=== PATIENT | female | born 1955 | race Caucasian/White ===

== ENCOUNTER 2021-03-14 21:20 | Inpatient (IN) | payer OTHER ==
[~2021-03-14] VITALS: Ht 152.4 cm; Wt 61.2 kg
[2021-03-14 21:21] VITALS: BP 129/65
[2021-03-14 22:05] LABS: ABSOLUTE NEUTROPHILS 6.9 thou/uL (1.4-8.2); BASOPHILS 0.8 % (0.0-2.0); EOSINOPHILS 1.4 % (0.0-3.0); HEMATOCRIT 48.5 % (37.0-47.0); HEMOGLOBIN 16.1 gm/dL (12.0-15.0); LYMPHOCYTES 24.7 % (24.0-44.0); MCHC 33.1 g/dL (28.0-37.0); MCV 99.6 fL (80.0-100.0); PLATELET COUNT 330 thou/uL (150-400); POLYS 65.1 % (36.0-66.0); RBC 4.87 mil/uL (4.20-5.00); RDW 14.1 % (10.5-14.5); WBC 10.5 thou/uL (4.0-11.0)
[2021-03-14 22:18] LABS: CALCIUM 8.5 mg/dL (8.5-10.1); CREATININE 1.1 mg/dL (0.6-1.0); POTASSIUM 4.1 mmol/L (3.5-5.1)
[2021-03-14 22:24] LABS: TOTAL BILIRUBIN 0.3 mg/dL (0.2-1.0); TOTAL PROTEIN 6.2 g/dL (6.4-8.2)
--- NOTE | 2021-03-15 09:40 | EKG ---
[place] [address] [facility] [place] [address] ELECTROCARDIOGRAM REPORT Name: DIANA GARZA Room #: 170-10 ADM IN M.R.#: [id number] Admission: 03/14/21 Attend Phys: Artur Paniagua MD Discharge: Date of : 57 Report #: [id number] [facility] ED Test Date: 2021-03-14 Test Time: 21:56:59 Pat Name: DIANA GARZA Department: Room: 170 Gender: F Ham Clerk: MATTEO : 1955 Requested By: Nelia Martino Order Number: [id number] MD: Royce Tapia Measurements Intervals [place] Rate: 71 P: 86 CA: 188 QRS: 140 QRSD: 94 T: 56 QT: 407 QTc: 443 Interpretive Statements Sinus rhythm Right axis deviation Low voltage, extremity leads Abnormal R-wave progression, late transition No previous ECG available for comparison Electronically Signed On 03-15-2021 9:40:19 CDT by Royce Tapia [email or web address] <ELECTRONICALLY SIGNED> By: Royce Tapia MD, [facility] 03/15/21 0940 D: [id number]/2155 55 Royce Tapia MD, FACC /EPI
[2021-03-15] MEDS ORDERED: NORVASC5 MG PO (11:29)
[2021-03-15] MEDS ORDERED: GABAPENTIN600 M1 PO (11:30)
[2021-03-15] MEDS ORDERED: TRAMADOL 50 MG50 MG PO (11:30)
[2021-03-15] MEDS ORDERED: CLONAZEPAM 0.50.5 M1 PO (11:30)
[2021-03-15] MEDS ORDERED: LIPITOR 20 MG T20 M1 PO (11:31)
[2021-03-15] MEDS ORDERED: BUSPAR30 MG PO (11:31)
[2021-03-15] MEDS ORDERED: INDERAL LA120 M1 PO (11:31)
[2021-03-15] MEDS ORDERED: COLACE100 MG PO (11:31)
[2021-03-15] MEDS ORDERED: REMERON30 M1 PO (11:31)
[2021-03-15] MEDS ORDERED: CELEBREX50 MG PO (11:32)
[2021-03-15] MEDS ORDERED: ZYPREXA20 MG PO (11:32)
[2021-03-15] MEDS ORDERED: PLAVIX 75 MG TA75 MG PO (11:38)
[2021-03-15] MEDS ORDERED: TOPROL XL100 MG PO (11:38)
[2021-03-15] MEDS ORDERED: MYSOLINE50 MG PO (11:39)
[2021-03-15] MEDS ORDERED: TOVIAZ8 MG PO (11:40)
[2021-03-15] MEDS ORDERED: SPIRONOLACTONE25 MG PO (11:40)
[2021-03-15 16:24] VITALS: BP 117/68
[2021-03-15 16:50] VITALS: BP 124/67
[2021-03-15 17:26] VITALS: BP 125/75
[2021-03-15 19:29] VITALS: BP 134/93
[2021-03-16 05:28] VITALS: BP 135/76
[2021-03-16 05:45] LABS: HEMATOCRIT 47.8 % (37.0-47.0); HEMOGLOBIN 15.8 gm/dL (12.0-15.0); MCH 33.3 pg (26.0-34.0); MCV 100.6 fL (80.0-100.0); RBC 4.75 mil/uL (4.20-5.00); RDW 14.1 % (10.5-14.5); WBC 11.6 thou/uL (4.0-11.0)
[2021-03-16 05:54] LABS: CALCIUM 9.2 mg/dL (8.5-10.1); MAGNESIUM 1.6 mg/dL (1.8-2.4); POTASSIUM 4.7 mmol/L (3.5-5.1)
[2021-03-16 07:25] VITALS: BP 132/80
[2021-03-16 15:35] VITALS: BP 134/77
[2021-03-16 19:43] VITALS: BP 126/78
[2021-03-17 05:14] LABS: HEMATOCRIT 46.5 % (37.0-47.0); HEMOGLOBIN 15.6 gm/dL (12.0-15.0); MCH 33.4 pg (26.0-34.0); MCHC 33.6 g/dL (28.0-37.0); MCV 99.5 fL (80.0-100.0); RBC 4.68 mil/uL (4.20-5.00); RDW 14.3 % (10.5-14.5); WBC 12.5 thou/uL (4.0-11.0)
[2021-03-17 05:40] LABS: CALCIUM 9.2 mg/dL (8.5-10.1); CREATININE 0.9 mg/dL (0.6-1.0); MAGNESIUM 1.8 mg/dL (1.8-2.4); POTASSIUM 4.8 mmol/L (3.5-5.1)
[2021-03-17 07:44] VITALS: BP 129/63
[2021-03-17 08:05] VITALS: BP 129/63
[2021-03-17 15:30] VITALS: BP 98/54
[2021-03-17 16:05] VITALS: BP 98/54
[2021-03-17 20:03] VITALS: BP 126/73
[2021-03-18 05:03] LABS: HEMATOCRIT 43.1 % (37.0-47.0); HEMOGLOBIN 14.2 gm/dL (12.0-15.0); MCH 32.7 pg (26.0-34.0); MCHC 32.9 g/dL (28.0-37.0); MCV 99.5 fL (80.0-100.0); RBC 4.34 mil/uL (4.20-5.00); RDW 14.2 % (10.5-14.5); WBC 12.9 thou/uL (4.0-11.0)
[2021-03-18 05:18] LABS: CALCIUM 8.9 mg/dL (8.5-10.1); POTASSIUM 4.9 mmol/L (3.5-5.1)
[2021-03-18 08:38] VITALS: BP 126/74
[2021-03-18] MEDS ORDERED: IPRAT-ALBUT 0.5-3 ML INH (12:36)
[2021-03-18] MEDS ORDERED: LEVOFLOXACIN500 MG PO (12:36)
[2021-03-18] MEDS ORDERED: METOPROLOL SUCC50 MG PO (12:36)
[2021-03-18] MEDS ORDERED: PREDNISONE 10 M10 M1 PO (12:37)
[2021-03-18] MEDS ORDERED: MUCINEX600 MG PO (12:37)
[2021-03-18 14:28] VITALS: BP 116/76
== END 2021-03-18 17:52 | DRG 189 ==
LOC: ER 21:20 → EROBS 23:12 → 4W 03-15 18:26
PROVIDERS: Hospitalist; Nurse Practitioner Family; ADMIT Internal Medicine; ATTEND Internal Medicine
DX: J96.21 Acute and chronic respiratory failure with hypoxia (principal); E44.0 Moderate protein-calorie malnutrition; I10 Essential (primary) hypertension; E78.5 Hyperlipidemia, unspecified; F17.210 Nicotine dependence, cigarettes, uncomplicated; E11.9 Type 2 diabetes mellitus without complications; J43.9 Emphysema, unspecified; F41.9 Anxiety disorder, unspecified; I71.2 Thoracic aortic aneurysm, without rupture; F32.9 Major depressive disorder, single episode, unspecified; R26.89 Other abnormalities of gait and mobility; I25.10 Atherosclerotic heart disease of native coronary artery without angina pectoris; I95.9 Hypotension, unspecified; Z20.822 Contact with and (suspected) exposure to COVID-19; Z95.5 Presence of coronary angioplasty implant and graft; Z88.6 Allergy status to analgesic agent; Z88.8 Allergy status to other drugs, medicaments and biological substances; Z68.26 Body mass index [BMI] 26.0-26.9, adult; Z71.6 Tobacco abuse counseling
CPT/HCPCS: 10045

== ENCOUNTER 2021-03-18 12:26 | Inpatient (IN) | payer OTHER ==
[~2021-03-18] VITALS: Ht 157.5 cm; Wt 61.2 kg
[~2021-03-18 12:26] MED LIST: BUSPAR30 MG PO; CELEBREX50 MG PO; CLONAZEPAM 0.50.5 M1 PO; COLACE100 MG PO; GABAPENTIN600 M1 PO; INDERAL LA120 M1 PO; LIPITOR 20 MG T20 M1 PO; MYSOLINE50 MG PO; NORVASC5 MG PO; PLAVIX 75 MG TA75 MG PO; REMERON30 M1 PO; SPIRONOLACTONE25 MG PO; TOPROL XL100 MG PO; TOVIAZ8 MG PO; TRAMADOL 50 MG50 MG PO; ZYPREXA20 MG PO
[2021-03-18] MEDS ORDERED: IPRAT-ALBUT 0.5-3 ML INH (12:36)
[2021-03-18] MEDS ORDERED: LEVOFLOXACIN500 MG PO (12:36)
[2021-03-18] MEDS ORDERED: METOPROLOL SUCC50 MG PO (12:36)
[2021-03-18] MEDS ORDERED: MUCINEX600 MG PO (12:37)
[2021-03-18] MEDS ORDERED: PREDNISONE 10 M10 M1 PO (12:37)
[2021-03-18 16:43] VITALS: BP 118/69
--- NOTE | 2021-03-18 17:54 | NUR ---
ASSUMED CARE OF PT AT 1530 THIS AFTERNOON. PT IS IN REHAB TO RECOVER FROM ASPERATION AND COPD. PT IS A/OX4, SKIN IS WARM AND DRY AND APPROPRIATE TO RACE. LUNGS ARE WHEZING IN UPPER AND DIMINISHED IN THE LOWER TURNER. DISTAL PULSES PRESENT AND 2+. PT IS ON O2/NC@4L/HR. O2 SAT HAS BEEN IN THE 80S AND LOW 90S. ASSESSMENT OTHERWISE UNREMARKABLE. CALL LIGHT AND OTHER NEEDS ARE PLACED WITHIN REACH.
[2021-03-18 20:00] VITALS: BP 144/78
--- NOTE | 2021-03-19 02:55 | NUR ---
assumed care approx 1900 evening 03/18. pt alert and oriented x4, appropriate and cooperative. 02 at 8L per n/c. resp tx as ordered. pt took hs meds with water tolerating well. pt appears to be sleeping soundly. bed alarm on and call light in reach. will continue to monitor.
[2021-03-19 04:58] LABS: HEMATOCRIT 45.6 % (37.0-47.0); HEMOGLOBIN 15.5 gm/dL (12.0-15.0); MCH 33.8 pg (26.0-34.0); MCV 99.4 fL (80.0-100.0); RBC 4.59 mil/uL (4.20-5.00); RDW 14.3 % (10.5-14.5); WBC 13.4 thou/uL (4.0-11.0)
[2021-03-19 05:08] LABS: CALCIUM 8.9 mg/dL (8.5-10.1); CREATININE 0.9 mg/dL (0.6-1.0); MAGNESIUM 1.9 mg/dL (1.8-2.4); POTASSIUM 4.2 mmol/L (3.5-5.1)
[2021-03-19 05:35] LABS: FOLIC ACID 5.1 ng/mL (8.6-58.9)
[2021-03-19 08:00] VITALS: BP 111/59
--- NOTE | 2021-03-19 09:36 | NUR ---
ASSUMED CARE AT 0700. PATIENT IS ALERT AND ORIENTED X4. PATIENT GONZALES'S, COMMUNITY HEALTH REPRESENTATIVE ARE EQUAL. LUNGS ARE DEMINISHED. 02 AT 7L PER N/C. UP TO THE BSC WITH SBA. PATIENT HAS S.L. IN HER RIGHT FORARM. FALL AND SAFETY PROTOCOLS IN PLACE. DENIES PAIN. CONTINUES TO PROGRESS SLOWLY TOWARDS D/C GOALS. WILL CONTINUE TO MONITER.
[2021-03-19 19:50] VITALS: BP 141/96
--- NOTE | 2021-03-20 01:33 | NUR ---
assumed care approx 1899 evening 03/19. pt alert and oriented x4, pleasant and cooperative. 02 at 8l per n/c. resp tx as ordered. pt up to bathroom to void with 1 assist with walker. pt took hs meds with water tolerating well. pt appears to be sleeping soundly. bed alarm on and call light in reach. will continue to monitor.
[2021-03-20 03:05] LABS: GLYCOHEMOGLOBIN (HGB A1C) 5.7 % (4.8-5.6)
[2021-03-20 07:15] VITALS: BP 124/76
--- NOTE | 2021-03-20 12:59 | NUR ---
ASSUMED CARE AT 0700. SLEPT FAIR. ALERT AND ORIENTATED X 3. HAS CHRONIC BACK PAIN BUT DECLINES ANY PAIN MEDS FOR NOW. LUNGS DIMINISHED, DENIES BEING IN DISTRESS, ON 8L 02. PT ENC TO WORK ON IS AND MANAGED TO GO UP TO 250ML. 02 TITRATED TO 4L FOR FEAR OF CO2 RETENTION AND SATS AT 90%. PT IS COMFORTABLE ESPECIALLY AT REST AND ABLE TO SPEAK IN FULL SENTENCES. PT BECAMES TEARY WHEN SPEAKING ABOUT HER SONS AND HAVING FAMILY DRAMA ISSUES AT HOME. CLONAZEPAM GIVEN. DR PATTON CONSULTED FOR INCREASER ANXIETY AND STRESS. APPETITE GOOD, ABD SOFT AND ACTIVE, LAST BM ON 03/16, LACTULOSE 40ML GIVEN X 1, PASSING FLATUS. UP WITH SBA WITH WALKER TO BATHROOM, DIURESING ADEQ. WALKED WITH PHY THERAPY TODAY.
[2021-03-20 19:05] VITALS: BP 132/83
--- NOTE | 2021-03-21 00:20 | NUR ---
PT ASSESSMENT COMPLETED AND VSS. MEDS GIVEN ORDERED AND WELL TOLERATED. PT CONSTIPATED. MEDICATION AND PRUNE JUICE GIVEN FOR CONSTIPATION. ABD DISTENTED. PT UP ON BSC WITH +FLATUS AT THIS TIME. 0 BM. SAT WNL ON 4L NC. PT TALKED A LOT ABOUT HOW HARD LIFE HAS BEEN FOR HER. PROVIDED MUCH EMOTIONAL SUPPORT. SLEEPING AT THIS TIME. DENIES NEEDS. WILL CONTINUE TO MONITOR FREQUENTLY.
[2021-03-21 07:15] VITALS: BP 116/68
--- NOTE | 2021-03-21 10:56 | NUR ---
chart review. cm called spoke with ryan via phone call. she was working with ot. noted she lives in [facility] with . independent prior to hospital. 14 steps up to room. no dme. no hh or rehab in the past. will cont following as needed for dc needs.
--- NOTE | 2021-03-21 11:20 | NUR ---
ASSUMED CARE AT 0700. SLEPT FAIRLY WELL. ALERT AND ORIENTATED X 3. NO REPORTED PAIN TODAY. PT COMPLAINED OF SOMETIMES HAVING DIFFICULTY WITH SWALLOWING AND DR CARRILLO NOTIFIED. HAD A SWALLOW STUDY TODAY, SHOWED SILENT ASPIRATION AND DIET CHANGED TO MECH CHOP WITH NECTAR THICK. TOLERATED MED WITH APPLE SAUCE. PER STAFF PT HAD A GOOD BM EARLY THIS MORNING, AFTER GIVEN BOWEL REGIMEN WITH PRUNE JUICE. PT FELT MUCH BETTER, ABDOMEN IS SOFTER. UP WITH SBA TO BATHROOM. PARTICIPATING WITH THERAPY AND PROGRESSING. ON 4L 02 WITH SAT AT 94%, CONT TO ENC INCENTIVE SPIROMETRY.
--- NOTE | 2021-03-21 12:50 | NUR ---
Nutrition: RD received rehab admission orders consult. Admit with COPD exacerbation and gait instability. PMH: COPD, DM, HTN, HLD, stents. ST evaling pt during visit stating pt is silent aspirator and will need mech soft, nectar thick liquids diet. Also does not wear upper dentures when eating. C/O food sticking in esophagus and hx of dilations. Would rec GI consult. Stable wts. Intake of meals so far charted as 50-90% with good appetite reported. Folate deficiency-supplementing. Vitamin D pending. A1C 5.7 with no current accuchecks or Dm meds, however pt currently on steroids. Pt would like to try ensure pudding/magic cups. Would recommend order blood glucose monitoring to determine if further diet restrictions needed as well as GI consult. Low nutrition risk.
[2021-03-21 19:36] VITALS: BP 114/69
--- NOTE | 2021-03-21 23:42 | NUR ---
PT ASSESSMENT COMPLETED AND VSS. MEDS GIVEN ORDERED AND WELL TOLERATED. FALL PRECAUTIONS IN PLACE. PT VERY ANXIOUS AND TALKING ABOUT HOW HERE SONS WERE CAUSING PROBLEMS AGAIN. PROVIDED MUCH EMOTIONAL SUPPORT. ANXIETY MEDICATION WORKING WELL. STOOL SOFTNER AND SENNA GIVEN AT HS. 0 BM SO FAR THIS EVENING. PT SAT WNL THIS EVENING ON 4L NC. PT UP TO THE BSC WITH ASST. STEADY. VOIDING LARGE AMOUNT OF YELLOW URINE. PT TOLERATING NECTOR THICK LIQUIDS. SLEEPING WELL. WILL CONTNIUE TO MONITOR FREQUETNLY. PT REFUSED SCDS.
--- NOTE | 2021-03-22 05:38 | NUR ---
PT'S SON NGA CALLED EARLY THIS MORNING STATING THAT HE NEEDED TO TALK TO HIS MOM AND THAT IT WAS AN EMERGENCY. THE SON SOUNDED INTOXICATED. TOLD THE SON THAT THE PATIENT WAS SLEEPING AND HE SAID NOT TO WAKE HER. HE WOULD NOT TELL STAFF WHAT THE EMERGENCY WAS. ABOUT 2 HOURS LATER AT AROUND 5 AM THE SON NGA CALLED AGAIN. HE SAID THAT IT WAS AN EMERGENCY. INFORMED THE PATIENT THAT HER SON NGA NEEDED HER TO CALL HIM AND THAT IT WAS AN EMERGENCY. THE PATIENT WAS VERY UPSET AND SAID THAT HER SON IS ALWAYS CAUSING TROUBLE. AND THAT WHEN HE GETS DRINKING HE ACTS UP. THE PATIENT ASKED THIS RN TO NOT WAKE HER WHEN HE CALLS AND TO LET HER SLEEP. THE PATIENT SAID TO HAVE HIM CALL BACK AFTER 8 AM. THE SON CALLED A FEW MORE TIMES. THE SON WAS TOLD BY RN THAT HE NEEDED TO CALL BACK AFTER 8 AM. THE SON WAS ASKED WHAT THE EMERGENCY WAS. HE WOULD NOT SHARE THAT INFORATION. CONTACTED THE HOUSE SUP WINSOME REGARDING THE SITUATION. SHE SAID NOT TO WAKE THE PATIENT AND TO FORWARD THE CALL TO HER IF HE CONTINUED TO CALL. THE SON HAS STOPPED CALLING AT THIS TIME.
[2021-03-22 07:18] VITALS: BP 138/77
--- NOTE | 2021-03-22 13:28 | NUR ---
team meeting, recommendation: son and her spouse alcohol rehab. diet nectar thick with mech soft. vital stim with speech. dc 03/25 home, rt to check excer desat, possible will need home o2. follow up with her keycase assembler, psychiatrist, therapist, charlotte juarez with [facility]. nurse only. cats not to chew on o2 tubing like in past.
[2021-03-22 14:00] VITALS: BP 118/62
[2021-03-22 19:39] VITALS: BP 108/54
--- NOTE | 2021-03-22 20:01 | NUR ---
Assumed pt care at 0700. pt was alert and oriented x3. Assessments completed,vss. Took meds whole in apple sauce, no difficulty noted. Call appropriately for assistance. pt is on 4L O2 with sat of 95%. pt participated in activities. pt was emotional this AM. pt stated she was worried about and her sons. Emotional support was provided to pt. pt son call at Am to staff station. pt son stated ''Tell mom I got fired and I can't pay her bills anymore. At noon pt stated one of her son called her a bitch when she picked up her phone. THe other son kaylyn blamed her for losing his job. Clay Worker offered pt to move her to another room and also make her private in the symtem. pt refused the offers. pt was farting, no BMS noted. will continue to monitor.
--- NOTE | 2021-03-23 04:26 | NUR ---
ASSUMED PT CARE AT 1930.PT WAS SITTING ON HER BED TALKING ON THE PHONE AT SHIFT CHANGE.HS MEDS ADMINISTERED WITH APPLESAUCE,PT GEETA WELL.PT CONT ON 4L/NC.PT UP WITH ASSIST/WALKER TO THE BR.SOB WITH EXERTION NOTED.SKIN TEAR TO HER R ARM HEALED,OPEN TO AIR.PT ABLE TO MAKE HER NEEDS KNOWN.CALL LIGHT WITHIN REACH.
[2021-03-23 07:10] VITALS: BP 122/83
--- NOTE | 2021-03-23 10:36 | NUR ---
Received awake on bed. Due medications given as prescribed, given with apple sauce- able to take meds w/o difficulty. On MS, not on telemetry; no complains and signs of chest pain, crushing sensation and heaviness. Assisted in ADLs. On O2 at 2-4lpm via nasal cannula; pt seen by RT this AM for exercise and rest saturation- recommmending O2 at 2pm at all times. On Mechanically altered diet- tolerating well; assisted and encouraged in eating and drinking; no nausea, no vomiting and no abdominal pain noted. Continent of bowel and bladder, assisted in going to toilet; Falls bundle in place. No IV noted. No complains of pain made during assessment. To continue monitoring patient.
--- NOTE | 2021-03-23 11:26 | NUR ---
called medicaid, still waiting to here back if medmo will covered any of her thicken liquids. ryan requested that she will need ride home, possible need home o2 again.
[2021-03-23 19:23] VITALS: BP 128/69
--- NOTE | 2021-03-24 02:09 | NUR ---
assumed care approx 1899 evening 03/23. pt alert and oriented x4, pleasant and cooperative. pt stated she had a good day. pt took hs meds with pudding tolerating well. 02 at 2l per n/c. resp tx as ordered. pt appears to be sleeping soundly. bed alarm on and call light in reach. will continue to monitor.
[2021-03-24 05:34] LABS: HEMOGLOBIN 13.1 gm/dL (12.0-15.0); MCH 33.2 pg (26.0-34.0); MCHC 33.6 g/dL (28.0-37.0); MCV 98.7 fL (80.0-100.0); PLATELET COUNT 303 thou/uL (150-400); RBC 3.95 mil/uL (4.20-5.00); RDW 14.1 % (10.5-14.5); WBC 13.2 thou/uL (4.0-11.0)
[2021-03-24 05:37] LABS: CALCIUM 8.6 mg/dL (8.5-10.1); MAGNESIUM 1.7 mg/dL (1.8-2.4); POTASSIUM 4.2 mmol/L (3.5-5.1)
--- NOTE | 2021-03-24 06:53 | NUR ---
ryan declined to use thick liquid at home, no form needed from md for medicaid to covered rt her refusal. cm faxed referral to [facility] nurse only to see if they will accept.
[2021-03-24 06:56] VITALS: BP 128/69
[2021-03-24 08:09] VITALS: BP 148/80
[2021-03-24 09:23] LABS: PLATELET ESTIMATE NORMAL
--- NOTE | 2021-03-24 18:23 | NUR ---
ASSUMED CARE AT 0700. PATIENT IS A&0X4. DENIES PAIN. PATIENT HAS BEEN APPROVED FOR MOD/I STATUS WITHIN HER ROOM. 02Sat AT ABOVE 92, WHILE CONTINOUSLY ON 2L OF O2. SOB PRESENT AT EXCERTION. USES WALKER FOR AMBULATION. PREFERS HAVING MEDICATION WHOLE, ONE AT TIME WITH PUDDING. NO SIGNS OF ASPIRATION NOTED DURING MEDICATION ADMINISTRATION. PLANS TO BE DISCHARGED TOMMOROW. NO CONCRENS AT THIS TIME. WILL CONTINUE TO MONITOR.
[2021-03-24 19:40] VITALS: BP 133/64
--- NOTE | 2021-03-25 01:01 | NUR ---
assumed care approx 1899 evening 03/24. pt alert and oriented x4, pleasant and cooperative. pt now modified independent in her room. pt took hs meds with pudding tolerating well. O2 at 2l per n/c. resp tx as ordered. pt appears to be sleeping soundly. call light in reach. will continue to monitor.
--- NOTE | 2021-03-25 07:10 | NUR ---
pt given suppository this early am per request. pt with no bm yet this am and pt stated she just is hoping to have a bm before she is discharged today. pt denies discomfort and states she feels she will have one by the time she is discharged.
[2021-03-25 08:22] VITALS: BP 137/83
[2021-03-25] MEDS ORDERED: VITAMIN B-12500 MCG PO (08:49)
[2021-03-25] MEDS ORDERED: FOLIC ACID1 MG PO (08:49)
[2021-03-25] MEDS ORDERED: PULMICORT0.5 MG/22 INH (08:49)
[2021-03-25] MEDS ORDERED: METOPROLOL SUCC50 MG PO (08:49)
[2021-03-25] MEDS ORDERED: LEVOFLOXACIN500 MG PO (08:50)
[2021-03-25] MEDS ORDERED: PREDNISONE 10 M10 M1 PO (08:52)
[2021-03-25] MEDS ORDERED: MIRALAX17 GM PO (09:47)
--- NOTE | 2021-03-25 10:55 | NUR ---
ASSUMED CARE AT 0700. SLEPT WELL LAST NIGHT. ALERT AND ORIENTATED X 3. PLEASANT. EXCITED ABOUT DC HOME TODAY. REPORTED LOWER BACK PAIN AND TREATED WITH TRAMADOL WITH GOOD RELIEF. UP IN THE ROOM INDEPENDENTLY. STILL COMPLAINED OF FEELING CONSTIPATED. MIRALAX WITH MAG CITRATE GIVEN. PASSING FLATUS. LUNGS DIM, ON 2L 02 WITH SAT ABOVE 92%. DENIES ANY SHORT OF AIR OR CHEST PAIN. DC SUMMARY AND H&P WITH PSYCH NOTES AND LABS FAXED TO [facility].
--- NOTE | 2021-03-25 11:43 | NUR ---
faxed referral for nurse only, to [facility], [facility], [facility], [place], and [facility].
== END 2021-03-25 16:15 | disposition home health service (06) | DRG 947 ==
PROVIDERS: Nurse Practitioner; Nurse Practitioner Family; ADMIT Physical Medicine & Rehabilitation; ATTEND Physical Medicine & Rehabilitation
DX: R53.81 Other malaise (principal); J96.20 Acute and chronic respiratory failure, unspecified whether with hypoxia or hypercapnia; E44.0 Moderate protein-calorie malnutrition; E11.9 Type 2 diabetes mellitus without complications; I10 Essential (primary) hypertension; E78.5 Hyperlipidemia, unspecified; R26.89 Other abnormalities of gait and mobility; F41.9 Anxiety disorder, unspecified; F32.9 Major depressive disorder, single episode, unspecified; I25.10 Atherosclerotic heart disease of native coronary artery without angina pectoris; J43.9 Emphysema, unspecified; I71.2 Thoracic aortic aneurysm, without rupture; E53.8 Deficiency of other specified B group vitamins; F17.210 Nicotine dependence, cigarettes, uncomplicated; Z88.6 Allergy status to analgesic agent; Z88.8 Allergy status to other drugs, medicaments and biological substances; Z79.899 Other long term (current) drug therapy; Z95.5 Presence of coronary angioplasty implant and graft; Z71.6 Tobacco abuse counseling; Z68.24 Body mass index [BMI] 24.0-24.9, adult
CPT/HCPCS: 10112

== ENCOUNTER 2021-04-05 01:30 | Inpatient (IN) | payer OTHER ==
[~2021-04-05] VITALS: Ht 157.5 cm; Wt 61.1 kg
[~2021-04-05 01:30] MED LIST changes: +FOLIC ACID1 MG PO; +IPRAT-ALBUT 0.5-3 ML INH; +LEVOFLOXACIN500 MG PO; +METOPROLOL SUCC50 MG PO; +MIRALAX17 GM PO; +MUCINEX600 MG PO; +PREDNISONE 10 M10 M1 PO; +PULMICORT0.5 MG/22 INH; +VITAMIN B-12500 MCG PO
[2021-04-05 01:32] VITALS: BP 119/62
[2021-04-05 01:58] LABS: ABSOLUTE NEUTROPHILS 5.6 thou/uL (1.4-8.2); EOSINOPHILS 1.4 % (0.0-3.0); HEMATOCRIT 38.2 % (37.0-47.0); HEMOGLOBIN 12.8 gm/dL (12.0-15.0); LYMPHOCYTES 20.3 % (24.0-44.0); MCH 32.8 pg (26.0-34.0); MCHC 33.6 g/dL (28.0-37.0); MCV 97.8 fL (80.0-100.0); MONOCYTES 9.9 % (1.0-8.0); PLATELET COUNT 415 thou/uL (150-400); POLYS 67.4 % (36.0-66.0); RBC 3.91 mil/uL (4.20-5.00); RDW 13.9 % (10.5-14.5); WBC 8.3 thou/uL (4.0-11.0)
[2021-04-05] MEDS ORDERED: SPIRIVA RESPIMAT4 G1 INH (01:58)
[2021-04-05 02:07] LABS: ANION GAP 7 mmol/L (7-16); BUN 7 mg/dL (7-18); CALCIUM 8.9 mg/dL (8.5-10.1); CHLORIDE 101 mmol/L (98-107); CO2 28 mmol/L (21-32); CREATININE 0.9 mg/dL (0.6-1.0); GLUCOSE 91 mg/dL (74-106); POTASSIUM 3.7 mmol/L (3.5-5.1); SODIUM 136 mmol/L (136-145)
[2021-04-05 02:16] LABS: APTT 25.7 Seconds (24.5-32.8); D-DIMER 0.52 ug/mLFEU (0.19-0.50); INR 0.95; PROTIME 10.4 Seconds (10.5-12.1)
[2021-04-05 02:17] LABS: ALBUMIN 2.3 g/dL (3.4-5.0); SGOT 12 U/L (15-37); SGPT 14 U/L (14-59); TOTAL BILIRUBIN 0.7 mg/dL (0.2-1.0); TOTAL PROTEIN 6.2 g/dL (6.4-8.2); TROPONIN-I <0.06 ng/mL (<0.06)
[2021-04-05 03:16] VITALS: BP 101/40
[2021-04-05] MEDS ORDERED: NORVASC10 MG PO (03:32)
[2021-04-05] MEDS ORDERED: METOPROLOL SUC100 MG PO (03:33)
[2021-04-05 04:56] VITALS: BP 133/99
[2021-04-05] MEDS ORDERED: FOLIC ACID1 MG PO (05:39)
--- NOTE | 2021-04-05 05:52 | NUR ---
Arrived from ER around 5. Denies any chest discomfort since given ntg. in ER. BP is better after NS bolus given in ER. O2 at 2L/NC which is her baseline from home (wears 2L 24hrs/day). She verbalized being short of breath with exertion. Home meds verified with pt. Up ad enma in room with steady gait. Refused SCD's. called to get an update on pt. Cardiology consult called to answering service.
--- NOTE | 2021-04-05 08:09 | NUR ---
assumed pt care at 0700. pt resting. Sharee Trent NP states pt will go to aquatic life laborer at noon. pt voices no concerns at this time. assessment performed as charted. vss. will continue to monitor and follow poc.
--- NOTE | 2021-04-05 08:46 | EKG ---
[place] [address] [facility] [place] [address] ELECTROCARDIOGRAM REPORT Name: DIANA GARZA Room #: 207-P ADM IN M.R.#: [id number] Admission: 04/05/21 Attend Phys: Yony Pro MD Discharge: Date of : 57 Report #: [id number] [facility] ED Test Date: 2021-04-05 Test Time: 01:41:10 Pat Name: DIANA GARZA Department: Room: 207 Gender: F Background Check Coordinator: mary ann : 1955 Requested By: Abel Venegas Order Number: [id number] MD: Thai Kirkland Measurements Intervals [place] Rate: 69 P: 70 WI: 140 QRS: 101 QRSD: 101 T: 55 QT: 389 QTc: 417 Interpretive Statements Sinus rhythm Right axis deviation Borderline low voltage, extremity leads Abnormal R-wave progression, late transition Compared to ECG 03/14/2021 21:56:59 No significant changes Electronically Signed On 04-05-2021 8:46:04 CDT by Thai Kirkland [email or web address] <ELECTRONICALLY SIGNED> By: Thai Kirkland MD, [facility] 04/05/21 0846 014 014 Thai Kirkland MD, FAC /EPI
[2021-04-05 09:03] LABS: TROPONIN-I <0.06 ng/mL (<0.06)
[2021-04-05 09:17] LABS: CHOLESTEROL 114 mg/dL (<200); HDL CHOLESTEROL 51 mg/dL (>40); LDL CHOLESTEROL 51 mg/dL (<100); TC:HDL 2.2 Ratio (Not establshd); TRIGLYCERIDE 64 mg/dL (<150); VLDL 13 mg/dL (<40)
[2021-04-05 09:18] VITALS: BP 114/67
--- NOTE | 2021-04-05 10:58 | NUR ---
PT TO FINE PATCHER AT 1057. PT WILL BE OFF THE UNIT UNTIL FURTHER NOTICE.
--- NOTE | 2021-04-05 11:03 | 2DMMODE ---
[facility] [place] [address] 2 D/M-MODE ECHOCARDIOGRAM Name: DIANA GARZA Room #: 207-P ADM IN M.R.#: [id number] Admission: 04/05/21 Attend Phys: Yony Pro MD Discharge: Date of : 57 Report #: [id number] THIS REPORT FOR: cc: Cassidy Shah,Thai Moreno MD [facility] ~ APPROVED REPORT Study performed: 04/05/2021 10:21:30 EXAM: Comprehensive 2D, Doppler, and color-flow Echocardiogram Patient Location: Bedside Room #: 207 Status: routine BSA: 1.62 HR: 70 bpm BP: 114/67 mmHg Rhythm: NSR Other Information Study Quality: Adequate Indications Chest Pain Hx: ID, stent, COPD, HTN, HLP, DM. 2D Dimensions RVDd: 31.99 mm IVSd: 14.76 (7-11mm) LVOT Diam: 19.74 (18-24mm) LVDd: 41.65 mm PWd: 8.87 (7-11mm) Ascending Ao: 34.15 (22-36mm) LVDs: 27.47 (25-40mm) Left Atrium: 40.58 (27-40mm) Aortic Root: 30.96 mm Volumes Left Atrial Volume (Systole) Single Plane 4CH: 52.25 mL Single Plane 2CH: 43.45 mL LA ESV Index: 31.00 mL/m2 Aortic Valve AoV Peak Darrick.: 1.83 m/s AO Peak Gr.: 13.36 mmHg LVOT Max P.09 mmHg LVOT Max V: 1.13 m/s [facility] [address] [place] [address] 2 D/M-MODE ECHOCARDIOGRAM Name: DIANA GARZA Room #: 207-P [facility]#: [id number] Admission: 04/05/21 Attend Phys: Yony Pro MD Discharge: Date of : 57 Report #: [id number] DOMINIC Vmax: 1.89 cm2 Mitral Valve E/A Ratio: 1.1 MV Decel. Time: 227.29 ms MV E Max Darrick.: 1.18 m/s MV A Darrick.: 1.07 m/s MV PHT: 65.91 ms IVRT: 76.12 ms Pulmonary Valve PV Peak Darrick.: 1.04 m/s PV Peak Gr.: 4.29 mmHg Pulmonary Vein P Vein S: 0.56 m/s P Vein D: 0.48 m/s P Vein S/D Ratio: 1.17 Tricuspid Valve TR Peak Darrick.: 2.95 m/s RAP Estimate: 5.00 mmHg TR Peak Gr.: 35.00 mmHg PA Pressure: 40.00 mmHg Left Ventricle The left ventricle is normal size. There is normal LV segmental wall motion. Mild concentric left ventricular hypertrophy. Left ventricular systolic function is normal. LVEF is 60-65%. Right Ventricle The right ventricle is normal size. The right ventricular systolic function is normal. Atria Left atrium is at the upper limits of normal. The right atrium size is normal. Aortic Valve The aortic valve is normal in structure; mildly calcified. No aortic regurgitation is present. There is no aortic valvular stenosis. Mitral Valve The mitral valve is normal in structure. Mild mitral regurgitation. No evidence of mitral valve stenosis. Tricuspid Valve [facility] [address] [place] [address] 2 D/M-MODE ECHOCARDIOGRAM Name: IDANA GARZA Room #: 207-P ADM IN M.R.#: [id number] Admission: 04/05/21 Attend Phys: Yony Pro MD Discharge: Date of : 57 Report #: [id number] The tricuspid valve is normal in structure. Trace to mild tricuspid regurgitation. Estimated PAP is 40mmHg. Pulmonic Valve The pulmonary valve is normal in structure. Trace pulmonic regurgitation. Great Vessels The aortic root is normal in size. The ascending aorta is normal in size. IVC is normal in size and collapses >50% with inspiration. Pericardium There is no pericardial effusion. <Conclusion> Normal left ventricle size with mild concentric hypertrophy Ejection fraction 60% Normal right ventricular size/function Left atrial size upper limits of normal Color-flow Doppler study was performed of the aortic/mitral/tricuspid/pulmonary valve Aortic valve mildly calcified Mild posterior directed mitral valve insufficiency Trace tricuspid valve insufficiency Pulmonary systolic pressure estimated 41 mmHg No pericardial effusion <ELECTRONICALLY SIGNED> By: Thai Kirkland MD, FACC 04/05/211102 02 02 Thai Kirkland MD, FACC /INF
--- NOTE | 2021-04-05 12:19 | NUR ---
PT RETURNED FROM MEAT AND SEAFOOD MANAGER. PT IS ON BEDREST UNTIL 1400. PTS RIGHT GROIN SITE IS CLEAN DRY AND INTACT. WILL CONTINUE TO MONITOR AND FOLLOW POC.
--- NOTE | 2021-04-05 13:41 | NUR ---
met with patient who admits with chest pain. Rec cardiac cath with no interventions, plan home today. Met with patient who reports recent dc from [facility] 03/25/21 but did not rec HH care. Called [facility] who reports was not on service. DC notation at time of dc mentioned HH care at dc. Patient to dc home today. She reports she has oxygen in place with [facility]. She has a community boiler room helper with whom she spoke ap gray. Offered to call boiler room helper regarding dc and patient declined reported she will call her today. Patient with need for transport home with oxygen supplied. Plan to arrange express van for home. Verified address.
[2021-04-05] MEDS ORDERED: CEFDINIR300 MG PO (13:50)
[2021-04-05 14:17] VITALS: BP 114/67
--- NOTE | 2021-04-05 14:26 | NUR ---
Arrnaged [facility] for home at [phone]. Updated patient who is in agreement.
[2021-04-05 16:00] VITALS: BP 104/55
[2021-04-06 00:06] LABS: GLYCOHEMOGLOBIN (HGB A1C) 5.8 % (4.8-5.6)
== END 2021-04-05 17:35 | disposition home or self-care (01) | DRG 287 ==
LOC: ER 01:30 → EROBS 02:27 → 2N 04:35
PROVIDERS: Emergency Medicine; Nurse Practitioner Family; ADMIT Hospitalist; ATTEND Hospitalist
PROC: 4A023N7 Measurement of Cardiac Sampling and Pressure, Left Heart, Percutaneous Approach (ICD-10-PCS; principal; 2021-04-05)
PROC: B2111ZZ Fluoroscopy of Multiple Coronary Arteries using Low Osmolar Contrast (ICD-10-PCS; principal; 2021-04-05)
DX: I25.10 Atherosclerotic heart disease of native coronary artery without angina pectoris (principal); J44.9 Chronic obstructive pulmonary disease, unspecified; E11.9 Type 2 diabetes mellitus without complications; I10 Essential (primary) hypertension; F41.9 Anxiety disorder, unspecified; F32.9 Major depressive disorder, single episode, unspecified; F17.210 Nicotine dependence, cigarettes, uncomplicated; F12.90 Cannabis use, unspecified, uncomplicated; I71.4 Abdominal aortic aneurysm, without rupture; E78.5 Hyperlipidemia, unspecified; Z79.899 Other long term (current) drug therapy; Z88.5 Allergy status to narcotic agent; Z88.8 Allergy status to other drugs, medicaments and biological substances; Z95.5 Presence of coronary angioplasty implant and graft; I25.2 Old myocardial infarction
CPT/HCPCS: 10081

== ENCOUNTER 2021-09-03 04:35 | Emergency (ER) | payer OTHER ==
[~2021-09-03] VITALS: Ht 157.5 cm; Wt 54.4 kg
[~2021-09-03 04:35] MED LIST changes: +CEFDINIR300 MG PO; +METOPROLOL SUC100 MG PO; +NORVASC10 MG PO; +SPIRIVA RESPIMAT4 G1 INH
[2021-09-03] MEDS ORDERED: ALBUTEROL2.5 MG/3 M INH (04:53)
[2021-09-03] MEDS ORDERED: PROAIR HFA8.5 GM INH (04:54)
[2021-09-03] MEDS ORDERED: PROPRANOLOL 20M20 M1 PO (04:56)
[2021-09-03 06:13] LABS: ABSOLUTE NEUTROPHILS 6.2 thou/uL (1.4-8.2); BASOPHILS 0.5 % (0.0-2.0); EOSINOPHILS 0.9 % (0.0-3.0); HEMATOCRIT 41.3 % (37.0-47.0); HEMOGLOBIN 13.7 gm/dL (12.0-15.0); LYMPHOCYTES 20.4 % (24.0-44.0); MCH 31.2 pg (26.0-34.0); MCHC 33.2 g/dL (28.0-37.0); MCV 93.8 fL (80.0-100.0); MONOCYTES 6.1 % (1.0-8.0); PLATELET COUNT 278 thou/uL (150-400); POLYS 72.1 % (36.0-66.0); RDW 13.5 % (10.5-14.5); WBC 8.6 thou/uL (4.0-11.0)
[2021-09-03 06:59] LABS: AMP/METHAMP Negative (Negative); BARBITURATES POSITIVE (Negative); BENZODIAZEPINES Negative (Negative); COCAINE Negative (Negative); METHADONE Negative (Negative); OPIATES Negative (Negative); PCP Negative (Negative)
[2021-09-03 07:44] LABS: ANION GAP 7 mmol/L (7-16); BUN 6 mg/dL (7-18); CALCIUM 8.8 mg/dL (8.5-10.1); CHLORIDE 103 mmol/L (98-107); CO2 28 mmol/L (21-32); CREATININE 0.9 mg/dL (0.6-1.0); GLUCOSE 116 mg/dL (74-106); POTASSIUM 3.3 mmol/L (3.5-5.1); SODIUM 138 mmol/L (136-145)
[2021-09-03 07:50] LABS: ALBUMIN 3.3 g/dL (3.4-5.0); DIRECT BILIRUBIN < 0.1 mg/dL (<0.1-0.2); SALICYLATE 9.7 mg/dL (2.8-20.0); SGOT 24 U/L (15-37); SGPT 29 U/L (14-59); TOTAL BILIRUBIN 0.3 mg/dL (0.2-1.0); TOTAL PROTEIN 6.2 g/dL (6.4-8.2)
--- NOTE | 2021-09-03 15:07 | EKG ---
[place] [address] [facility] [place] [address] ELECTROCARDIOGRAM REPORT Name: DIANA GARZA [id number] Admission: 09/03/21 Attend Phys: Discharge: Date of : 57 Report #: [id number] ED Test Date: 2021-09-03 Test Time: 05:43:21 Pat Name: DIANA GARZA Department: Room: Gender: F Application Penetration Tester: devon : 1955 Requested By: Neymar Buckley Order Number: [id number] MD: Royce Tapia Measurements Intervals [place] Rate: 74 P: 82 LA: 166 QRS: 115 QRSD: 95 T: 54 QT: 399 QTc: 443 Interpretive Statements Sinus rhythm Left posterior fascicular block Abnormal R-wave progression, late transition Compared to ECG 04/05/2021 01:41:10 No significant changes found Electronically Signed On 09-03-2021 15:06:54 CDT by Royce Tapia [email or web address] <ELECTRONICALLY SIGNED> By: Royce Tapia MD, [facility] 09/03/21 1506 0543 0543 Royce Tapia MD, FACC /EPI
[2021-09-03 18:20] VITALS: BP 132/74
== END 2021-09-03 18:21 | disposition other institution (70) ==
LOC: ER 04:35
PROVIDERS: Student in an Organized Health Care Education/Training Program
DX: R45.851 Suicidal ideations (principal); Z20.822 Contact with and (suspected) exposure to COVID-19; J44.9 Chronic obstructive pulmonary disease, unspecified; I25.10 Atherosclerotic heart disease of native coronary artery without angina pectoris; E11.9 Type 2 diabetes mellitus without complications; I10 Essential (primary) hypertension; E78.5 Hyperlipidemia, unspecified; F41.9 Anxiety disorder, unspecified; F31.9 Bipolar disorder, unspecified; Z98.890 Other specified postprocedural states; Z79.899 Other long term (current) drug therapy; Z79.51 Long term (current) use of inhaled steroids; Z79.891 Long term (current) use of opiate analgesic; Z79.84 Long term (current) use of oral hypoglycemic drugs; Z88.5 Allergy status to narcotic agent; Z88.8 Allergy status to other drugs, medicaments and biological substances